=== PATIENT | female | born 1965 | race Caucasian/White ===

== ENCOUNTER 2019-01-24 16:49 | Emergency (ER) | payer OTHER ==
[~2019-01-24] VITALS: Ht 154.9 cm; Wt 80.0 kg
[2019-01-24 16:54] VITALS: Ht 154.9 cm; Wt 80.0 kg
--- NOTE | 2019-01-24 17:23 | ERD ---
ER Documentation Chief Complaint Chief Complaint HERE FOR RIGHT OVARYAN MASS BX HPI 53-year-old female with no significant prior medical history other than chronic cigarette smoking presents to the ED for evaluation of right ovarian mass. Patient was seen 2 days ago at [facility] for vague abdominal complaints and a CT revealed a large right ovarian mass which had increased in size since her previous CT in August. Patient denies abdominal pain nausea, vomiting, diarrhea constipation. No vaginal bleeding or discharge. Has had an IUD in place for approximately 10 years. Denies anorexia, weight loss night sweats or fevers. ROS All systems reviewed and are negative except as per history of present illness. Allergies Allergies: Coded Allergies: No Known Allergy (Unverified , 01/24/19) PMhx/Soc Reviewed in chart. As per HPI., As per HPI History of Surgery: No Hx Neurological Disorder: No Hx Respiratory Disorders: No Hx Psychiatric Problems: No Hx Miscellaneous Medical Probl: Yes Hx Alcohol Use: No Hx Substance Use: No Hx Tobacco Use: Yes Smoking Status: Current every day smoker FmHx No family history of cancer Physical Exam Vitals Vital Signs Date Temp Pulse Resp B/P (MAP) Pulse Ox O2 O2 Flow FiO2 Time Delivery Rate 01/24/19 98.1 99 18 153/76 99 16:54 (101) Physical Exam Const: Alert, anxious but in no acute distress Head: Atraumatic Eyes: Normal Conjunctiva ENT: Normal External Ears, Nose and Mouth. Neck: Full range of motion. No meningismus. Resp: Clear to auscultation bilaterally Cardio: Regular rate and rhythm, no murmurs Abd: Soft, obese, non tender, non distended. Normal bowel sounds. No rebound or guarding Skin: No petechiae or rashes Back: No midline or flank tenderness Ext: No cyanosis, or edema Neur: Awake and alert Psych: Anxious but not depressed Procedures/MDM DOCUMENTS REVIEWED: ED nurse, labs and CT report from [facility] evaluation 01/22/2019. Significant for WBC of 20,[address] findings of right ovarian mass IMAGING: ROCEDURE: US Pelvis CLINICAL INDICATION: Pain. Possible right ovarian mass.. TECHNIQUE: Sonographic evaluation of the pelvis was performed utilizing both transabdominal and transvaginal technique. Images were reviewed on the high- resolution PACS workstation. COMPARISON: No prior studies are available for comparison. FINDINGS: The uterus is normal in size measuring 9.1 x 6.2 x 6.1 cm. Uterus is coarse in appearance without discrete mass. There is an IUD within the endometrial canal. The endometrium is thin and normal measuring 6.4 mm in diameter. The right ovary measures 5.3 x 3.3 x 3.2 cm. The left ovary measures 4.5 x 3.1 x 3.2 cm. There is an avascular complex partially cystic right ovarian hemorrhagic cyst versus cystic mass measuring 3.2 x 2.1 cm.. There is a 1.3 cm simple cyst left ovary. There is a 1.9 x 1.5 x 1.8 cm complex likely hemorrhagic left ovarian cyst. Color doppler vascular flow is demonstrated to both ovaries. There are no adnexal masses. There is no free fluid in the pelvis. IMPRESSION: 1. Complex partially cystic right ovarian structure which may represent a hemorrhagic cyst versus cystic neoplasm. Recommend follow-up to resolution. 2. Simple complex likely left ovary cysts. 3. IUD within the endometrial canal. 4. Coarse uterine echotexture which may represent fibroid change without a discrete mass. RPTAT: [facility]VK .Jason Manley MD, Date Time Electronically viewed and signed by .Jason Manley MD, on 01/24/2019 18:40 .K/ MEDICAL DECISION MAKIN-year-old female with no significant prior medical history other than chronic cigarette smoking presents to the ED for evaluation of right ovarian mass. Ultrasound to further evaluate the right ovarian mass morphology and rule out torsion reveals [ ]. Stable for discharge with precautionary instructions and outpatient follow-up as counseled. CALLS/CONSULTATIONS: Dr Alexei Gonzalez. We will arrange for [facility] follow-up authorization. Counseled patient regarding diagnostic workup, diagnosis and need for followup. Understands to return to ED if symptoms recur, worsen or any other concerns. Departure Diagnosis: Primary Impression: Ovarian mass, right Condition: Stable KORY ORTIZ MD Jan 24, 2019 17:23
[2019-01-24 20:10] VITALS: BP 125/85; PULSE 110; RESP 19
== END 2019-01-24 20:10 | disposition home or self-care (01) ==
LOC: E/R 16:49
DX: N83.201 Unspecified ovarian cyst, right side (principal)
CPT/HCPCS: 76830; 76856; Z7502